=== PATIENT | male | born 1940 | race Caucasian/White ===

== ENCOUNTER 2019-04-05 21:09 | Inpatient (IN) | payer OTHER, MEDICAID ==
[~2019-04-05] VITALS: Ht 177.8 cm; Wt 60.8 kg
[2019-04-05 21:09] VITALS: BP 77/56
--- NOTE | 2019-04-05 21:09 | NUR ---
78 YEAR OLD MALE [facility] FOR GENERALIZED WEAKNESS. PATIENT AOX0, LETHARGIC, AND MUMBLES INCOMPREHENSIBLE SOUNDS. GCS 10 ([id number]). PATIENT BREATHING EVEN AND UNLABORED, RR 20, SPO2 97%. BLOOD SUGAR READING "LOW". PATIENT COOL TO TOUCH. HR 170, BP 77/56. 4 RNS AT BEDSIDE, 2 SOCK BOARDER AT BEDSIDE, DR SAUCEDA AT BEDSIDE.
--- NOTE | 2019-04-05 21:09 | NUR ---
PATIENT ARRIVED BY EMS
[2019-04-05] MEDS ORDERED: NACL 0.9% 1,000 ML IV SCH (21:13)
--- NOTE | 2019-04-05 21:13 | NUR ---
MULTIPLE ATTEMPTS TO INSERT IV HAVE BEEN MADE, OK BY DR DAWKINS TO INSERT IO
--- NOTE | 2019-04-05 21:14 | NUR ---
BS READING "LOW"
--- NOTE | 2019-04-05 21:14 | NUR ---
Ricarda iverson in ED - 04/05/19 at 2128 by [facility] PATIENT ARRIVED BY EMS.
[2019-04-05] MEDS ORDERED: DEXTROSE 50% 50 ML SYR IVP ONE (21:15)
[2019-04-05] MEDS ORDERED: LEVOFLOXACIN 500 MG/D5W PREMIX 100 ML IV ONE (21:15)
[2019-04-05] MEDS ORDERED: KETOROLAC 30 MG/ML VIAL IVP ONE (21:15)
[2019-04-05] MEDS ORDERED: KETOROLAC 30 MG/ML VIAL ONE (21:15)
--- NOTE | 2019-04-05 21:15 | NUR ---
IO INSERTED BY CARMELITA CASTELLANOS
--- NOTE | 2019-04-05 21:16 | NUR ---
1L 0.9 NACL BOLUS STARTING
--- NOTE | 2019-04-05 21:17 | NUR ---
30MG TORADOL GIVEN IV
--- NOTE | 2019-04-05 21:20 | NUR ---
BLOOD SUGAR 97
--- NOTE | 2019-04-05 21:26 | NUR ---
STRAIGHT CATHETER INSERTED, YELLOW URINE WITH SEDIMENTS RETURNED
--- NOTE | 2019-04-05 21:41 | NUR ---
PATIENT STILL LETHARGIC, UNABLE TO ANSWER QUESTIONS. SARAHY.
--- NOTE | 2019-04-05 21:43 | NUR ---
BEAR RENEGGER BEING PLACED ONTO PATIENT
--- NOTE | 2019-04-05 21:45 | NUR ---
EKG PERFORMED AT BEDSIDE
--- NOTE | 2019-04-05 21:46 | NUR ---
EKG BEING PERFORMED BY EMT
--- NOTE | 2019-04-05 21:46 | NUR ---
PATIENT DAUGHTER AT BEDSIDE
[2019-04-05] MEDS ORDERED: MEGE40SU3 PO (21:47)
[2019-04-05 21:49] LABS: BASOPHILS % (AUTO) 0.1 % (0.0-2.0); EOSINOPHILS % (AUTO) 0.2 % (0.0-4.0); HEMATOCRIT 27.8 % (36-52); HEMOGLOBIN 9.1 g/dL (12.0-18.0); LYMPHOCYTES # (AUTO) 0.8 K/uL (2.0-11.5); LYMPHOCYTES % (AUTO) 8.1 % (20.5-51.1); MEAN CORPUSCULAR HEMOGLOBIN 32 pg (27-31); MEAN CORPUSCULAR HGB CONC 33 g/dL (33-37); MONOCYTES # (AUTO) 0.1 K/uL (0.8-1.0); NEUTROPHILS # (AUTO) 8.7 K/uL (1.8-7.7); NEUTROPHILS % (AUTO) 90.6 % (42.2-75.2); PLATELET COUNT (AUTO) 50 K/uL (140-450); RED BLOOD CELL COUNT(AUTO) 2.81 MIL/uL (4.20-6.10); RED CELL DISTRIBUTION WIDTH 15.7 % (11.6-13.7); WHITE BLOOD COUNT (AUTO) 9.6 K/uL (4.8-10.8)
[2019-04-05 21:50] LABS: APPEARANCE,URINE SL CLOUDY (CLEAR); BILIRUBIN,URINE NEGATIVE (NEGATIVE); BLOOD, URINE 3+ (NEGATIVE); COLOR,URINE DARK YELLOW (YELLOW); LEUKOCYTE ESTERASE ,URINE 1+ (NEGATIVE); NITRITE, URINE NEGATIVE (NEGATIVE); UGLUCOSE NEGATIVE (NEGATIVE)
[2019-04-05] MEDS ORDERED: RIFA550T PO (21:50)
--- NOTE | 2019-04-05 21:53 | NUR ---
XRAY AT BEDSIDE
[2019-04-05 21:55] LABS: HYALINE CASTS, URINE 0-10 /LPF (None Seen); URINE AMORPHOUS URATE 1+ /HPF (None Seen)
[2019-04-05] MEDS ORDERED: LEVO750T2 PO (22:11)
[2019-04-05] MEDS ORDERED: LACT10SO1 PO (22:11)
[2019-04-05] MEDS ORDERED: DOCU-299 PO (22:11)
[2019-04-05] MEDS ORDERED: GUAI-646 PO (22:11)
[2019-04-05] MEDS ORDERED: PROP10TA28 PO (22:19)
[2019-04-05] MEDS ORDERED: NACL 0.9% 1,000 ML IV ONE ×3 (22:20→23:45)
--- NOTE | 2019-04-05 22:24 | NUR ---
DR SAUCEDA NOTIFIED OF BLOOD PRESSURE
--- NOTE | 2019-04-05 22:26 | NUR ---
DR SAUCEDA AT BEDSIDE EVALUATING PT. PT'S TWO SONS AND DAUGHTER AT BEDSIDE. DR SAUCEDA DISCUSSED AND ANSWERED ALL QUESTIONS REGARDING PT'S POLST WITH PT'S SONS AND DAUGHTER. PT'S SON MAURO WRIGHT AND DAUGHTER TAMIKO WRIGHT AGREED TO MODIFIED RESUSCITATIVE MEASURES (BIPAP AND ACLS DRUGS/VASOPRESSORS ONLY; NO CPR, NO INTUBATION, NO DEFIBRILLATION OR CARDIOVERSION). HOSPITAL CODE STATUS FORM SIGNED BY TAMIKO WRIGHT AND DR SAUCEDA. TAMIKO INFORMED THAT HOSPITAL CODE FORM IS VALID DURING THIS HOSPITAL STAY BUT PT HAS TO HAVE PINK POLST SHEET FILLED OUT BY PCP. TAMIKO VERBALIZED UNDERSTANDING.
[2019-04-05 22:41] LABS: ANION GAP 24.1 (8-16); ASPARTATE AMINOTRANSFERASE 82 U/L (15-37); CARBON DIOXIDE 12.4 mmol/L (21-32); CHLORIDE 122 mmol/L (98-107); GLUCOSE 139 mg/dL (74-106); POTASSIUM 4.5 mmol/L (3.5-5.1); SODIUM SERUM 154 mmol/L (136-145); TOTAL BILIRUBIN 3.1 mg/dL (0.0-1.0)
[2019-04-05 22:44] LABS: UREA NITROGEN, BLOOD 114 mg/dL (7-18)
[2019-04-05 22:45] LABS: CREATININE 4.6 mg/dL (0.7-1.3)
--- NOTE | 2019-04-05 23:30 | NUR ---
DR ARAGON AT BEDSIDE EXPLAINED CENTRAL LINE INSERTION TO PT'S SON AND FAMILY. CONSENT FOR CENTRAL LINE INSERTION SIGNED BY TAMIKO KYLE, PT'S DAUGHTER WHO VERBALIZED UNDERSTANDING.
[2019-04-05] MEDS ORDERED: HYDROcodone/APAP 5/325 MG 1 TAB TAB PO PRN (23:35)
[2019-04-05] MEDS ORDERED: DOCUSATE SODIUM 100 MG GELCAP PO PRN (23:35)
[2019-04-05] MEDS ORDERED: ACETAMINOPHEN 325 MG TAB PO PRN (23:35)
[2019-04-05] MEDS ORDERED: MORPHINE SULFATE 2 MG/ML SYR IVP PRN (23:35)
[2019-04-05] MEDS ORDERED: ONDANSETRON 4 MG/2 ML VIAL IM/IVP PRN (23:35)
[2019-04-05] MEDS ORDERED: NOREPINEPHRINE 4 MG in DEXTROSE 5% 250 ML IV ONE (23:45)
--- NOTE | 2019-04-05 23:45 | NUR ---
DR ARAGON SPEAKING WITH DR SAUCEDA, DISCUSSED THAT INSERTING CENTRAL LINE IS HIGH RISK AT THIS TIME DUE TO LOW PLATELET. DR SAUCEDA TO ORDER LEVOPHED DRIP. PER DR SAUCEDA, OK TO START LEVOPHED DRIP ON 20G PIV AT THIS TIME. WILL CARRY OUT ORDERS.
[2019-04-05] MEDS ORDERED: NOREPINEPHRINE 4 MG/4 ML VIAL IV ONE (23:50)
[2019-04-05 23:56] LABS: BARBITURATE, URINE NEG. ng/ml (NEG <=200); BENZODIAZEPINE, URINE NEG. ng/mL (NEG <=200); CANNABINOID, URINE NEG. ng/mL (NEG <=50); COCAINE, URINE NEG. ng/mL (NEG <=300); OPIATE, URINE NEG. ng/mL (NEG <=2000); PHENCYCLIDINE SCREEN,URINE NEG. ng/mL (NEG <=25)
[2019-04-06] VITALS (23 sets, daily range): BP systolic 87–126; BP diastolic 5–86
[2019-04-06 00:08] LABS: MAGNESIUM 2.7 mg/dL (1.8-2.4); THYROID STIMULATING HORMONE 7.92 uIU/mL (0.34-3.74)
[2019-04-06 00:25] LABS: PHOSPHORUS 8.6 mg/dL (2.5-4.9)
--- NOTE | 2019-04-06 00:40 | NUR ---
3 RNS AT BEDSIDE ATTEMPTING TO GET ANOTHER IV INSERTION INTO PATIENT, MULTIPLE ATTEMPTS UNSUCCESSFUL
--- NOTE | 2019-04-06 00:43 | NUR ---
LAB AT BEDSIDE ATTEMPTING TO DRAW BLOOD
--- NOTE | 2019-04-06 00:45 | NUR ---
SUCCESSFUL INSERTION OF 20G IV ON L EJ WITH FIRST ATTEMPT.
--- NOTE | 2019-04-06 01:11 | NUR ---
PT LAYING IN BED, PT SON AT BEDSIDE. SPO2 97% ON 6L NC, RR 20 EVEN AND UNLABORED. BP 132/63, HR 105. PT AWAKE AND OPENS EYES SPONTANEOUSLY. ALL NEEDS MET AT THIS TIME.
[2019-04-06] MEDS ORDERED: DEXT 5% / NACL 0.45% 1,000 ML IV ONE (01:25)
--- NOTE | 2019-04-06 01:30 | NUR ---
RECEIVED REPORT FROM ER NURSE. PT ARRIVED AT [facility] 3MM, BRISK, PT UNCOOPERATIVE, CONFUSED, MOANING, PT AT FACE MASK 15L/MIN, O2 SAT 96%, LABORED BREATHING, HEART RATE SINUS TACHYCARDIA, S1S2 PRESENT, CAP REFILL <3S, PULSES 2+ BILATERAL UPPER AND LOWER EXTREMITIES, LUNG SOUNDS RONCHI ON BILATERAL UPPER LOBE, CRACKLES ON RIGHT MIDDLE LOBE, DIMINISHED AT BASES, ABDOMEN, SOFT, ROUND, NONDISTENDED, NONTENDER, BLADDER, SOFT, ROUND, NONDISTENDED, NONTENDER, PT SKIN NOT INTACT, PRESSURE ULCER ON SACROCO[place]YX AREA, DRESSING IN PLACE, SKIN, WARM, DRY, PT HAS SEVERE WEAKNESS, PT HAS LEFT FA 20 GAUGE RUNNING LEVOPHED AT 6 MCG/MIN, PT HAS LEFT EJ PERIPHERAL IV, SALINE LOCK, PT HAS RIGHT LOWER LEG IO SALINE LOCK. PT HAS RIGHT HAND 22 GAUGE RUNNING D5 1/2 NS AT 100 ML/HR. HOB 30 DEGREES, SIDE RAILS UP X2, BED AT LOWEST POSITION.
--- NOTE | 2019-04-06 01:45 | NUR ---
Patient will be admitted to care of DR MILLIGAN. Admited to ICU. Will go to room 8. Belongings list completed. Report to LIGIA CASTELLANOS.
[2019-04-06 02:30] LABS: PROTHROMBIN TIME > 40.0 secs (10.8-13.4)
--- NOTE | 2019-04-06 02:30 | NUR ---
HEATON CATHETER INSERTED.
[2019-04-06] MEDS ORDERED: ALBUTEROL SULFATE/IPRATROPIU 3 ML SOL IH PRN (03:30)
[2019-04-06] MEDS ORDERED: VANCOMYCIN 1GM/DEXT 5% PREMIX 200 ML IV SCH (04:00)
[2019-04-06] MEDS ORDERED: Z-GUARD PASTE TP PRN (04:00)
--- NOTE | 2019-04-06 04:30 | NUR ---
MEDICATIONS GIVEN. REPOSITIONED PT. PT AT BED BREATHING LABOROUSLY ON MASK 15L/MIN
[2019-04-06] MEDS ORDERED: CEFEPIME 2,000 MG in DEXTROSE 5% 100 ML IV SCH ×4 (05:00)
[2019-04-06] MEDS ORDERED: CEFEPIME 2,000 MG VIAL IV ONE (05:01)
[2019-04-06] MEDS ORDERED: VANCOMYCIN 1,000 MG VIAL ONE (05:02)
[2019-04-06] MEDS ORDERED: CLINDAMYCIN 600 MG in DEXTROSE 5% 50 ML IV SCH (06:00)
[2019-04-06 06:38] LABS: ANION GAP 27.7 (8-16); CHLORIDE 121 mmol/L (98-107); CHOL/HDL RATIO 4.9 (1-4.5); GLUCOSE 99 mg/dL (74-106); POTASSIUM 4.8 mmol/L (3.5-5.1); SODIUM SERUM 153 mmol/L (136-145)
[2019-04-06 06:43] LABS: UREA NITROGEN, BLOOD 107 mg/dL (7-18)
[2019-04-06 06:44] LABS: CREATININE 4.5 mg/dL (0.7-1.3)
[2019-04-06 06:45] LABS: CARBON DIOXIDE 9.1 mmol/L (21-32)
[2019-04-06 06:52] LABS: BASOPHILS % (AUTO) 0.5 % (0.0-2.0); EOSINOPHILS # (AUTO) 0.1 K/uL (0-0.4); EOSINOPHILS % (AUTO) 0.7 % (0.0-4.0); HEMATOCRIT 31.9 % (36-52); HEMOGLOBIN 10.6 g/dL (12.0-18.0); LYMPHOCYTES # (AUTO) 1.4 K/uL (2.0-11.5); LYMPHOCYTES % (AUTO) 16.3 % (20.5-51.1); MEAN CORPUSCULAR HEMOGLOBIN 33 pg (27-31); MEAN CORPUSCULAR HGB CONC 33 g/dL (33-37); MEAN CORPUSCULAR VOLUME 99.6 fL (80-94); MONOCYTES # (AUTO) 0.2 K/uL (0.8-1.0); MONOCYTES % (AUTO) 2.7 % (1.7-9.3); NEUTROPHILS # (AUTO) 6.9 K/uL (1.8-7.7); NEUTROPHILS % (AUTO) 79.8 % (42.2-75.2); PLATELET COUNT (AUTO) 62 K/uL (140-450); RED CELL DISTRIBUTION WIDTH 15.7 % (11.6-13.7); WHITE BLOOD COUNT (AUTO) 8.6 K/uL (4.8-10.8)
[2019-04-06] MEDS ORDERED: ALBUTEROL SULFATE/IPRATROPIU 3 ML SOL IH SCH (07:00)
--- NOTE | 2019-04-06 07:15 | NUR ---
DR. SHANKS AT BEDSIDE UPDATED MD ON PT CONDITION. NO NEW ORDERS.
--- NOTE | 2019-04-06 07:30 | NUR ---
RECEIVED REPORT FROM INTERNET MARKETING DIRECTOR NURSE LIGIA. PT IS AAOX2. PT ON NON-REBREATHER MASK 15L/MIN. LABORED BREATHING. DENIES PAIN. AFEBRILE. SR/ST ON MONITOR, S1S2 PRESENT, HR HIGH 90S. GENERALIZED WEAKNESS, SEVERE WEAKNESS BUE/BLE. CAP REFILL <3S, PULSES 2+ BILATERAL UPPER AND LOWER EXTREMITIES, LUNG SOUNDS RHONCHI ON BILATERAL UPPER LOBE. ABDOMEN, SOFT AND NONDISTENDED. SKIN NOT INTACT, PRESSURE ULCER ON SACROCO[place]YX AREA AND LEFT FOREHEAD SKIN TEAR. IV TO LEFT FA 20 G, RUNNING LEVOPHED AT 6 MCG/MIN, RIGHT HAND 24 GAUGE RUNNING D5 1/2 NS AT 100 ML/HR. PT HAS LEFT EJ PATENT AND INTACT, SL. RIGHT LOWER LEG IO SALINE LOCK. HOB 30 DEGREES, SIDE RAILS UP X2, BED AT LOWEST POSITION.
--- NOTE | 2019-04-06 08:21 | NUR ---
PATIENT HAS BEEN SCREENED AND CATEGORIZED HIGH NUTRITION RISK. PATIENT WILL BE SEEN WITHIN 1-2 DAYS OF ADMISSION. 04/06/19-04/07/[address]
--- NOTE | 2019-04-06 08:47 | NUR ---
TRIED TO GIVE PT PO MEDICATION, PT SAID NO. TRIED APPLE JUICE, PT SPITTED OUT.
--- NOTE | 2019-04-06 08:50 | NUR ---
DR CHRISTY IS MAKING ROUNDS. MADE HER AWARE PT REFUSED PO MEDS.
[2019-04-06] MEDS ORDERED: MEGESTROL 400 MG/10 ML UDC PO SCH (09:00)
[2019-04-06] MEDS ORDERED: LACTULOSE 20 GM/30 ML UDC PO SCH (09:00)
[2019-04-06] MEDS ORDERED: RIFAXIMIN 550 MG TAB PO SCH (09:00)
--- NOTE | 2019-04-06 09:00 | NUR ---
PT GRIMACING AND MOANING OCCASIONALLY. ASKED PT IF HE IS IN PAIN, PT SAID NO, ASKED I CAN GIVE YOU MORPHINE FOR PAIN. PT SAID NO.
[2019-04-06] MEDS ORDERED: MORPHINE SULFATE 50 MG in NACL 0.9% 45 ML IV PRN (10:10)
[2019-04-06] MEDS ORDERED: SCOPOLAMINE 1.5 MG/72 HR PATCH TD SCH (10:10)
[2019-04-06] MEDS ORDERED: LORazepam 2 MG/ML VIAL IM/IVP PRN (10:10)
--- NOTE | 2019-04-06 10:10 | NUR ---
PT IS AAOX2, DENIES PAIN, HOWEVER, FREQ GRIMACING AND MOANING. MORPHINE GIVEN ORDERED FOR FLACC 7.
--- NOTE | 2019-04-06 10:14 | NUR ---
*S.T. Bedside swallow eval completed* See report for details. Pt presents w/ severe oropharyngeal dysphagia c/b bolus holding, delayed pharyngeal swallow initiation, discoordination of swallowing and breathing. Pt is at high risk for aspiration due to swallow discoordination and altered mentation. Recommend: 1) Continue NPO status. Non-oral means of nutrition, hydration and meds. 2) Reassess in 3 days if pt is appropriate. D/w pt and RN Jacinto results/recommendations. No family present at time of eval. Time [id number]
--- NOTE | 2019-04-06 10:56 | NUR ---
PT. IS NOT IN STABLE CONDITION, LABOR BREATHING OBSERVED, SPOKE TO PRIMARY RN AND INFORM OF PT. IS ON MORPHINE DRIPS AND POSSIBLE PALLIATIVE CARE, CLARIFICATION MADE WITH DR. CHRISTY AND CONFIRMED THAT WOUND CARE CONSULT ORDER CANCELLED.
[2019-04-06] MEDS ORDERED: SODIUM BICARBONATE 8.4% 100 MEQ in DEXTROSE 5% 1,000 ML IV SCH (11:00)
--- NOTE | 2019-04-06 11:25 | NUR ---
CALLED RESIDENT . SPOKE WITH DR DIAZ WHO SAID NO BICARB, ONLY MORPHINE DRIP WILL BE GIVEN TO PT.
[2019-04-06] MEDS ORDERED: Z-GUARD PASTE TP SCH (13:00)
--- NOTE | 2019-04-06 13:50 | NUR ---
CALLED RESIDENTS, MADE THEM AWARE PT HR IS DROPPING AND THEY NEED TO COME.
--- NOTE | 2019-04-06 13:51 | NUR ---
CALLED [facility].
--- NOTE | 2019-04-06 14:20 | NUR ---
CALLED HEAD INSULATION BOARD SAW OPERATOR OFFICE AND WAITING FOR CALL BACK.
--- NOTE | 2019-04-06 15:10 | NUR ---
FAMILY CHOSE HOME. [facility] [phone]. TOLD REP FROM [facility] THAT WE WILL CALL THEM ONCE THE BODY RELEASED BY PROFESSOR OF RELIGION.
--- NOTE | 2019-04-06 16:40 | NUR ---
CALLED BOTTLING MACHINE OPERATOR OFFICE AGAIN, ASKED TO EXPEDITE, STILL WAITING FOR CALL BACK.
--- NOTE | 2019-04-06 19:05 | NUR ---
PHONE CALL TO CORONERS OFFICE; STEEL PLATE PRINTER NOT AVAILABLE AT THIS TIME; INQUIRE IF FIELD MARKETING MANAGER CAN TALK TO THE GRAPPLE SKIDDER OPERATOR REGARDING THE CASE; DISPATCH SAID SHE WILL INFORM GRAPPLE SKIDDER OPERATOR TO CALL FIELD MARKETING MANAGER BACK
--- NOTE | 2019-04-06 20:25 | NUR ---
PHONE CALL FROM CORONERS OFFICE; SPOKE WITH SALES MANAGEMENT INTERN KYLEE HERMAN; QUESTIONS ANSWERED; BODY RELEASED BY SALES MANAGEMENT INTERN.CASE # [id number]
--- NOTE | 2019-04-06 22:50 | NUR ---
PHONE CALL TO MAURO TITUS; SON; PER EARLIER CONVERSATION; TO NOTIFY HIM WHEN MORTUARY PICKS UP THE BODY.NO ANSWER, LEFT MESSAGE
--- NOTE | 2019-04-06 22:55 | NUR ---
BODY RELEASED TO [facility], WITNESSED BY LIGIA ALEXIS RN
[2019-04-07 07:10] LABS: HEPATITIS A ANTIBODY IGM Negative (Negative); HEPATITIS B CORE AB TOTAL Negative (Negative); HEPATITIS B SURFACE ANTIBODY Non Reactive (.); HEPATITIS B SURFACE ANTIGEN Negative (Negative)
[2019-04-07] MEDS ORDERED: CEFEPIME 2,000 MG in DEXTROSE 5% 100 ML IV SCH (09:00)
== END 2019-04-06 22:55 | disposition expired | DRG 871 ==
LOC: MED 21:09 → MIC 23:32
PROVIDERS: ADMIT General Practice; ATTEND General Practice
DX: A41.9 Sepsis, unspecified organism (principal); J69.0 Pneumonitis due to inhalation of food and vomit; E43 Unspecified severe protein-calorie malnutrition; N17.0 Acute kidney failure with tubular necrosis; D65 Disseminated intravascular coagulation [defibrination syndrome]; R65.21 Severe sepsis with septic shock; G93.41 Metabolic encephalopathy; J96.01 Acute respiratory failure with hypoxia; Z68.1 Body mass index [BMI] 19.9 or less, adult; D68.4 Acquired coagulation factor deficiency; E87.0 Hyperosmolality and hypernatremia; E87.2 Acidosis; N39.0 Urinary tract infection, site not specified; N17.9 Acute kidney failure, unspecified; E83.39 Other disorders of phosphorus metabolism; E02 Subclinical iodine-deficiency hypothyroidism; L89.152 Pressure ulcer of sacral region, stage 2; I12.9 Hypertensive chronic kidney disease with stage 1 through stage 4 chronic kidney disease, or unspecified chronic kidney disease; E83.41 Hypermagnesemia; K72.90 Hepatic failure, unspecified without coma; K74.60 Unspecified cirrhosis of liver; R62.7 Adult failure to thrive; N18.9 Chronic kidney disease, unspecified; E86.0 Dehydration; B19.20 Unspecified viral hepatitis C without hepatic coma; S09.90XA Unspecified injury of head, initial encounter; D63.8 Anemia in other chronic diseases classified elsewhere; Z87.891 Personal history of nicotine dependence; Z87.440 Personal history of urinary (tract) infections; Y93.89 Activity, other specified; Y92.89 Other specified places as the place of occurrence of the external cause; Y99.8 Other external cause status; Z87.01 Personal history of pneumonia (recurrent); Z86.14 Personal history of Methicillin resistant Staphylococcus aureus infection; Z79.899 Other long term (current) drug therapy; Z88.0 Allergy status to penicillin
CPT/HCPCS: 36415; 71045; 76705; 80048; 80053; 80305; 81001; 82140; 83036; 83605; 83690; 83735; 83880; 84100; 84443; 84484; 85025; 85610; 85730; 86704; 86706; 86708; 86709; 86803; 87040; 87081; 87086; 87340; 92610; 93005; 94640; 96365; 96367; 96375; 99291; J0692; J0696; J1644; J1885; J1956; J2270; J3370; J3490; J7030; J7060; J7620; Q0092